=== PATIENT | female | born 1960 | race Caucasian/White ===

== ENCOUNTER → 2020-12-28 15:48 | Outpatient (CLI) | payer MEDICAID, SELFPAY ==
--- NOTE | 2020-12-28 15:52 | CT_ITS ---
STUDY: LOW DOSE CT LUNG CANCER SCREENING REASON FOR EXAM: Female, 60 years old. 48 pack-year smoking history. Current smoker. RADIATION DOSAGE (If Supplied By Facility): CTDIvol = ( 3.02 ) mGy, DLP = ( 109.10 ) mGycm TECHNIQUE: No contrast was administered. Low dose technique was utilized (average mAS-38 and kVp 120). 1.25 mm axial source images with a slice interval of 1.25-mm were reconstructed in lung windows. 2.5 mm axial source images with a slice interval of 2.5-mm were reconstructed in lung windows. 5.0 mm axial source images with a slice interval of 5.0-mm were reconstructed in soft tissue windows. Nodule measured using lung windows on PACS and/or independent workstation with automated measurement of minimum and maximum diameter. Nodule measurement reported as average diameter rounded to the nearest whole number. Growth is defined as an increase ins size of greater than 1.5 mm. COMPARISON: None. NODULES: Nodule #: 1 Density: Solid Lung location: Right upper lobe: 0.2 cm from pleura Location in series: Series Number: 2 Image: 56 Size - D1 x D2 mm: 2 x 2 mm: 2 mm average diameter Margin: Smooth Shape: Round Calcification: No Fat: No Temporal comparison: No Nodule #: 2 Density: Solid Lung location: Right upper lobe: Pleural-based Location in series: Series Number: 2 Image: 85 Size - D1 x D2 mm: 2 x 2 mm: 2 mm average diameter Margin: Smooth Shape: Round Calcification: Yes Fat: No Temporal comparison: No Nodule #: 3 Density: Solid Lung location: Right upper lobe: 0.6 cm from pleura Location in series: Series Number: 2 Image: 101 Size - D1 x D2 mm: 3 x 4 mm: 3 mm average diameter Margin: Smooth Shape: Oval Calcification: Yes Fat: No Temporal comparison: None Nodule #: 4 Density: Solid Lung location: Right lower lobe: Pleural-based Location in series: Series Number: 2 Image: 134 Size - D1 x D2 mm: 4 x 4 mm: 4 mm average diameter Margin: Smooth Shape: Round Calcification: No Fat: No Temporal comparison: No Total lung nodules (excluding granulomas): 2 Emphysema: There are mild emphysematous changes throughout the lungs without infiltrates. Endobronchial lesion: None Aorta: Normal Coronary arteries: Minimal coronary artery calcifications. Heart: Normal Pulmonary artery: Normal Mediastinal nodes: None Other chest and abdominal findings: Degenerative changes of the thoracic spine. CT/Low Dose CT Lung Screening IMPRESSION: Lung-RADS category 2 - Continue annual screening with LDCT in 12 months. IMPORTANT NOTES FOR USE: ACR Lung-RADS Version 1.1 Assessment Categories Release Date: 2018 Category: Coded 0-4 bases on nodule(s) with highest degree of suspicion. Negative screen is defined as categories 1 and 2; a positive screen is defined as categories 3 and 4. Category 3 and 4A nodules that are unchanged on interval CT should be coded as category 2, and individuals returned to screening in 12 months. Category 4X: Category 3 or 4 nodules with additional imaging findings that increase the suspicion of lung cancer, such as spiculation, GGN that doubles in size in 1 year, enlarged lymph notes, etc. Category Modifiers: S (significant finding unrelated to lung cancer) Electronically Signed: Edgard Chin DO at 16:40 EDT Tel [phone], Service support ,
== END ==
PROVIDERS: PCP Nurse Practitioner Family; Referring Provider Nurse Practitioner Family; Visit Provider Nurse Practitioner Family
DX: Z12.2 Encounter for screening for malignant neoplasm of respiratory organs (principal); R05 Cough; Z72.0 Tobacco use
CPT/HCPCS: 71271

== ENCOUNTER 2021-09-08 12:32 | Emergency (ER) | payer MEDICAID, SELFPAY ==
[2021-09-08 12:34] VITALS: BP 132/100; PULSE 106; RESP 20; TEMP 36.9; O2SAT 97; BMI 27.5
--- NOTE | 2021-09-08 13:00 | RAD_ITS ---
INDICATION: wound EXAMINATION/TECHNIQUE: X-RAY - LEFT XR Foot Min 3 Views 3 VIEWS COMPARISON: None. FINDINGS: SOFT TISSUES: Soft tissue swelling most prominent overlying the forefoot was performed of the plantar region, no abnormal density visualized in the soft tissues. BONES/JOINTS: Degenerative bone changes, inferior to anterior spur. No evidence of cortical irregularity or lucency to suggest a fracture, no evidence of physical sclerotic bone lesion is seen. RAD/Foot min 3 Views IMPRESSION: Soft tissue swelling, no underlying osseous abnormality is seen. Electronically Signed: Aidan Rios MD at 13:20 EDT ,
--- NOTE | 2021-09-08 13:08 | EX.ED.DYSGE1 ---
HPI <WYATT Cedillo - Last Filed: 09/08/21 14:41> History of Present Illness Chief Complaint: Wound Narrative Narrative: 61-year-old female with no significant medical history presents the emergency department with acute on chronic wound to the left plantar aspect of the foot. Patient has had this in the past, however it did drain and the pain diminished. Patient states that for the last several weeks, it has been any more swollen and she is here for evaluation. Patient did have a foot x-ray that was ordered by her PCP in November 2020, she states that she never got it done and she is here for further evaluation. Patient is not diabetic, denies any fevers or chills, patient does not currently have a field engineer. PFSH <WYATT Cedillo - Last Filed: 09/08/21 14:41> PFS Medical History no medical history Home Medications cephalexin 500 mg PO Q6 #40 cap 09/08/21 [Rx Last Taken Unknown] hydrocodone-acetaminophen 1 tab PO Q6H PRN 3 Days #10 tab 09/08/21 [Rx Last Taken Unknown] sulfamethoxazole-trimethoprim [Bactrim DS] 1 tab PO BID #20 tab 09/08/21 [Rx Last Taken Unknown] Allergy/AdvReac Type Severity Reaction Status Date / Time No Known Allergies Allergy Verified 09/08/21 12:37 Surgical History (Updated 09/08/21 @ 12:49 by Loren Hanna) History of cholecystectomy Social History Smoking Status: Current every day smoker tobacco type: cigarettes ROS <WYATT Cedillo - Last Filed: 09/08/21 14:41> ROS ED ROS Narrative Constitutional: Negative for fever, chills, weight loss, weakness Eyes: Negative for vision loss, vision change, double vision ENT: Negative for any sore throat, ear pain, congestion Cardiovascular: Negative for any chest pain, tightness, palpitations, racing heartbeat Respiratory: Negative for any cough, sputum production, hemoptysis, shortness of breath, shortness of breath on exertion, orthopnea Gastrointestinal: Negative for any abdominal pain, nausea, vomiting, diarrhea, constipation, blood in stool, blood in vomit : Negative for any urinary frequency, incontinence, dysuria, retention, blood in urine Muscle skeletal: Negative for any muscle joint pain, stiffness, myalgias, arthralgias, neck pain, back pain. Positive for foot Neurological: Negative for any headache, dizziness, syncope, numbness or tingling Skin: Negative for any rashes, itching, abrasions, lacerations. Patient does have a lump/abscess to the plantar aspect of the distal foot. Psychiatric: Negative for any depression, anxiety, stress, suicidal ideation, homicidal ideation Hematologic: Negative for any easy bruising, excessive bruising, easy bleeding Allergies: Negative for any eczema, hives, rash EXAM <WYATT Cedillo - Last Filed: 09/08/21 14:41> Physical Exam Narrative Exam Narrative: Vital signs reviewed. Extremities: No peripheral edema, no signs of gross trauma or deformity. Active full range of motion of all extremities. Patient complains of left foot pain, this is due to the abscess/lump to the plantar surface. Neuro: Cranial nerves II through XII intact, no focal neurological deficits. Skin: Clean dry and intact with no rash, purpura, petechiae, vesicles or pustules. Patient does appear to have a cystic-like structure to the plantar aspect of the foot, this is very painful on palpation. Negative for any cellulitis, gross drainage at this time Backslash flank: No CVA tenderness, no midline spinal tenderness, no deformity. Psych: Normal mood and affect. No SI, HI or acute psychosis. Const Vital Signs: 09/08/21 12:34 Temperature 98.4 F Temperature Source Temporal Pulse Rate 106 H Respiratory Rate 20 H Blood Pressure 132/100 H Blood Pressure Mean 110 Pulse Ox 97 Oxygen Delivery Method Room Air Positive well nourished and well developed General Appearance ED: well developed <Dr. Dino Jhaveri MD - Last Filed: 09/08/21 14:45> Physical Exam Const Vital Signs: 09/08/21 12:34 Temperature 98.4 F Temperature Source Temporal Pulse Rate 106 H Respiratory Rate 20 H Blood Pressure 132/100 H Blood Pressure Mean 110 Pulse Ox 97 Oxygen Delivery Method Room Air MDM <WYATT Cedillo - Last Filed: 09/08/21 14:41> MDM MDM Narrative Medical decision making narrative: Patient appears well, patient appears nontoxic, vital signs are stable. Patient presents to the emergency department with an abscess, cyst to the plantar aspect of the left foot. Patient did receive 3 view x-rays, as read by ER physician, soft tissue swelling, no underlying osseous abnormality seen. Due to the patient's concern for pain with an injection to the sole of the foot, patient did receive a nerve block on the lateral malleoli are area. This nerve block was successful, I was able to place a 1 cm vertical laceration in the cyst, got copious amounts of brown, maynard drainage out. Sterile gloves, sterile dressings will be used. Patient replaced in a dressing. Patient be given Keflex, Bactrim as well as a Jackson here. Wound cultures were completed to see the growth of the bacteria. Patient will be given a field engineer to follow-up, patient instructed to keep the area clean and dry, is instructed to return for any worsening symptoms Radiography Diagnostic Testing: Clinical Impression(s) from Imaging Studies Foot X-Ray 09/08/21 13:00 IMPRESSION: Soft tissue swelling, no underlying osseous abnormality is seen. Electronically Signed: Aidan Rios MD at 13:20 EDT , <Dr. Dino Jhaveri MD - Last Filed: 09/08/21 14:45> MDM Radiography Diagnostic Testing: Clinical Impression(s) from Imaging Studies Foot X-Ray 09/08/21 13:00 IMPRESSION: Soft tissue swelling, no underlying osseous abnormality is seen. Electronically Signed: Aidan Rios MD at 13:20 EDT , Procedures <WYATT Cedillo - Last Filed: 09/08/21 14:41> Other Procedures Procedure(s): I&D. <Dr. Dino Jhaveri MD - Last Filed: 09/08/21 14:45> Other Procedures Procedure(s): Left lower extremity posterior tibial nerve block: Using small parts ultrasound guidance, the posterior tibial nerve was visualized posterior to the posterior tibial artery and associated veins, about 1-2 cm proximal to the medial malleolus, a 25-gauge needle was inserted under ultrasound guidance simultaneously, a total of 5 cc of 0.25% bupivacaine was injected in the area of the posterior tibial nerve after checking several times to ensure the needle was not in a vascular structure, and prepping with isopropanol. Tolerated well without any complications, good anesthesia throughout the plantar aspect of the foot was obtained. Discharge Plan Triage Chief Complaint: Wound ED Midlevel Provider: Abelardo Araya ED Provider: Dino Jhaveri Dx/Rx/DC Orders Clinical Impression: Abscess of left foot, Ganglion cyst of left foot Instructions: Abscess Drainage, ED Abscess Incision And Drainage Prescriptions: New hydrocodone-acetaminophen 5-325 mg tablet 1 tab PO Q6H PRN (Reason: pain) 3 Days Qty: 10 RF: 0 sulfamethoxazole-trimethoprim [Bactrim DS] 800-160 mg tablet 1 tab PO BID Qty: 20 RF: 0 cephalexin 500 mg capsule 500 mg PO Q6 Qty: 40 RF: 0 Primary Care Provider: Michael Jett NP Referrals: Bernice Varma DPM [STAFF PHYSICIAN] - Michael Jett HIGH SCHOOL COUNSELOR, HIGH SCHOOL COUNSELOR-C [Primary Care Provider] - Activity Restrictions/Additional Instructions: Please keep the area clean, dry. Please keep it dressed while up on your foot. Please follow-up with your primary care doctor as well as podiatry. Please take all antibiotics, pain medicines as needed. Print Language: Senegalese Disposition Disposition: Home, Self Care
[2021-09-08] MEDS: HYDROcodone Bitartrate/Apap 5/325 Tablet PO (14:47)
[2021-09-08] MEDS: Bupivacaine Mpf 0.5% 30 ML VIAL INFILT (14:47)
[2021-09-08] MEDS: Smz/Tmp Ds Tablet 1 TABLET PO (14:47)
[2021-09-08] MEDS: Cephalexin 250 MG Capsule 500 MG PO (14:47)
== END 2021-09-08 15:13 | disposition home or self-care (01) ==
PROVIDERS: Emergency Provider Emergency Medicine; PCP Nurse Practitioner Family; Visit Provider Emergency Medicine
DX: M67.472 Ganglion, left ankle and foot (principal); L02.612 Cutaneous abscess of left foot; F17.210 Nicotine dependence, cigarettes, uncomplicated
CPT/HCPCS: 64450; 73630; 87070; 87077; 87186; 87205; 99283

== ENCOUNTER → 2021-09-18 | Outpatient (CLI) | payer MEDICAID, SELFPAY ==
[2021-09-18 13:26] LABS: Erythrocyte Sedimentation Rate 12 mm/hr (0-30)
[2021-09-18 13:27] LABS: Absolute Lymphocyte Count 2.97 X10^3/uL (0.83-4.51); Absolute Neutrophil Count 8.3 X10^3/uL (2.0-7.7); Basophil# 0.04 X10^3/uL; Basophil% 0.3 % (0-1); Eosinophil# 0.11 X10^3/uL; Eosinophils% 0.9 % (0-5); Hematocrit 51.1 % (37-47); Hemoglobin 16.7 g/dL (12.0-15.0); Lymphocyte # 2.97 X10^3/ul (0.83-4.51); Lymphocyte % 24.8 % (19-41); Mean Corp Hgb Conc 32.7 g/dL (32-36); Mean Corpuscular Hgb 31.3 pg (27.0-32.0); Mean Corpuscular Volume 95.9 fL (81-99); Mean Platelet Vol. 9.9 fl (6.2-12.0); Monocyte# 0.48 X10^3/uL; NRBC Flagged by Analyzer 0 % (0-5); Neutrophil # 8.31 X10^3/uL (2.7-7.7); Neutrophil % 69.4 % (47-70); Platelet Count 494 K/mm3 (150-450); RBC Distribution Width CV 11.7 % (11.6-14.6); RBC Distribution Width SD 41.3 fl (35.1-43.9); Red Blood Count 5.33 M/mm3 (4.2-5.4)
[2021-09-18 14:15] LABS: AST(SGOT) 12 U/L (15-37); Alanine Aminotransfer ALT/SGPT 28 U/L (13-56); Albumin, Serum 3.9 g/dL (3.2-5.0); Alkaline Phosphatase 154 U/L (45-117); Anion Gap 8 (5-15); BUN 16 mg/dL (7-18); BUN/Creat Ratio 16.8 RATIO (10-20); Calcium,Total 9.3 mg/dL (8.5-10.1); Chloride 98 mmol/L (98-107); Creatinine, Serum 0.95 mg/dL (0.55-1.02); EST Glomerular Filtration Rate 63 mL/min (>60); Est Glom Filt Rate - Afr Amer 77 mL/min (>60); Globulin 3.8 g/dL (2.2-4.2); Glucose 546 mg/dL (74-106); Potassium 4.4 mmol/L (3.5-5.1); Protein, Total 7.7 g/dL (6.4-8.2); Sodium Level 130 mmol/L (136-145); Uric Acid 3.1 mg/dL (2.6-6.0)
== END | disposition home or self-care (01) ==
PROVIDERS: PCP Nurse Practitioner Family; Referring Provider Podiatrist; Visit Provider Podiatrist
DX: M10.9 Gout, unspecified (principal); L03.90 Cellulitis, unspecified; M79.89 Other specified soft tissue disorders
CPT/HCPCS: 36415; 80053; 84550; 85025; 85652; 86140

== ENCOUNTER 2021-09-25 12:41 | Emergency (ER) | payer MEDICAID, SELFPAY ==
[2021-09-25 12:42] VITALS: BP 147/93; PULSE 106; RESP 15; TEMP 36.6; O2SAT 97; BMI 27.4
[2021-09-25 12:56] LABS: Bedside Glucose 372 mg/dL (74-106)
--- NOTE | 2021-09-25 13:45 | RAD_ITS ---
STUDY: X-RAY - LEFT FOOT CLINICAL: Wound/bump at the plantar aspect of the toes for 2 years, infection. TECHNIQUE: 3 view(s) of the foot. COMPARISON: Radiographs 09/08/2021. FINDINGS: There are small plantar and posterior calcaneal enthesophytes. Otherwise, unremarkable talus, calcaneus, and tarsal bones. Normal visualized subtalar, talonavicular, calcaneocuboid, tarsal and tarsometatarsal articulations. Normal metatarsi. There is mild joint space narrowing of the metatarsophalangeal joint of the great toe. Normal tibial and fibular sesamoid bones. Normal interphalangeal joint of the great toe. Normal phalanges of the great toe. Normal second through fifth metatarsophalangeal joints. Normal interphalangeal joints and phalanges of the lesser toes. There is soft tissue swelling. RAD/Foot min 3 Views IMPRESSION: Soft tissue swelling. No demonstrated active bone destruction. Electronically Signed: Wayne Gardner MD at 14:15 EDT ,
[2021-09-25 13:58] LABS: Absolute Lymphocyte Count 3.67 X10^3/uL (0.83-4.51); Absolute Neutrophil Count 6.9 X10^3/uL (2.0-7.7); Basophil# 0.05 X10^3/uL; Basophil% 0.4 % (0-1); Eosinophils% 0.9 % (0-5); Hematocrit 50.6 % (37-47); Lymphocyte # 3.67 X10^3/ul (0.83-4.51); Lymphocyte % 32.4 % (19-41); Mean Corp Hgb Conc 33.6 g/dL (32-36); Mean Corpuscular Hgb 31.5 pg (27.0-32.0); Mean Corpuscular Volume 93.7 fL (81-99); Mean Platelet Vol. 9.3 fl (6.2-12.0); Monocyte# 0.56 X10^3/uL; Monocyte% 4.9 % (0-10); NRBC Flagged by Analyzer 0 % (0-5); Neutrophil # 6.91 X10^3/uL (2.7-7.7); Platelet Count 460 K/mm3 (150-450); RBC Distribution Width CV 11.9 % (11.6-14.6); RBC Distribution Width SD 41.3 fl (35.1-43.9); White Blood Count 11.3 K/mm3 (4.4-11.0)
[2021-09-25 14:06] LABS: ALB/GLOB Ratio 1.1 RATIO (0.9-2.4); AST(SGOT) 8 U/L (15-37); Alanine Aminotransfer ALT/SGPT 25 U/L (13-56); Albumin, Serum 4.1 g/dL (3.2-5.0); Alkaline Phosphatase 129 U/L (45-117); Anion Gap 6 (5-15); BUN 13 mg/dL (7-18); BUN/Creat Ratio 17.4 RATIO (10-20); CRP 3.14 mg/L (0.0-3.0); Calcium,Total 9.4 mg/dL (8.5-10.1); Chloride 104 mmol/L (98-107); Creatinine, Serum 0.75 mg/dL (0.55-1.02); EST Glomerular Filtration Rate 84 mL/min (>60); Est Glom Filt Rate - Afr Amer 101 mL/min (>60); Estimated Creatinine Clearance 61.51 ml/min; Globulin 3.7 g/dL (2.2-4.2); Glucose 342 mg/dL (74-106); Potassium 4.4 mmol/L (3.5-5.1); Protein, Total 7.8 g/dL (6.4-8.2); Sodium Level 135 mmol/L (136-145)
[2021-09-25 14:13] LABS: Erythrocyte Sedimentation Rate 22 mm/hr (0-30)
[2021-09-25] MEDS: Clindamycin 900 MG/50 ML BAG 75 MG IV (14:18)
--- NOTE | 2021-09-25 14:58 | EDS_ITS ---
HPI History of Present Illness Chief Complaint: Hyperglycemia Narrative Narrative: Chief complaint is hyperglycemia, however patient presents with left foot pain which is somewhat chronic she was on antibiotics for an infection but she tells me now it is back. She does have some discharge from that wound. She has no fevers or chills. She was seen by podiatry, a blood sugar was done a week ago when she was seen by podiatry and apparently her blood sugar was in the 500s. Up until that point she had no idea if she was a diabetic. Systemically she does not complain of any polyuria polydipsia or recent weight loss she tells me she has been her normal self which makes me suspicious that this diabetes has been ongoing for quite some time. PFSH PFSH Home Medications clindamycin HCl 300 mg PO Q8H 10 Days #60 cap 09/25/21 [Rx Last Taken Unknown] glipizide-metformin 1 tab PO DAILY #14 tab 09/25/21 [Rx Last Taken Unknown] Allergy/AdvReac Type Severity Reaction Status Date / Time No Known Allergies Allergy Verified 09/08/21 12:37 Surgical History History of cholecystectomy Social History Smoking Status: Current every day smoker tobacco type: cigarettes ROS ROS ED ROS Narrative Past medical history: Reviewed, she tells me she does not have any medical problems however she does not go to a doctor and does not have frequent checks. Medications: None currently Social history: Noncontributory Family history: Strong family history of diabetes. Review of systems: All systems negative except as indicated General: No fever Eyes: No visual changes ENT: No upper airway congestion, normal voice Neck: No neck pain Cardiovascular: No chest pain Respiratory: No shortness of breath or cough Gastrointestinal: No abdominal pain, nausea vomiting or diarrhea Genitourinary: No dysuria Musculoskeletal: Foot pain as in HPI Skin: No rash Neurological: No memory loss, confusion or any focal weakness Psych: No recent behavioral changes Hematologic: No easy bleeding or easy bruising EXAM Physical Exam Narrative Exam Narrative: Physical exam General: Patient appears chronically ill. She does not appear in any distress. She is pleasant. Head: Normocephalic, Atraumatic Eyes: Conjunctiva not pale ENT: Moist mucous membranes Neck: Supple, Nontender, No lymphadenopathy Cardiovascular: Regular rate, Regular rhythm Respiratory: No distress, CTA bilaterally Abdomen: Soft, Nontender, Nondistended Back: Nontender, Normal Inspection. Negative for: CVA tenderness Extremities: Left foot shows a dorsal wound about 3 cm x 2 cm, the wound is open, I can express some pus. The wound does not seem to be deep. There is no surrounding cellulitis at this time. Skin: As above Neurological: Alert, Normal Strength, Normal Sensation Psychological: Normal affect Const Vital Signs: 09/25/21 12:42 Temperature 98 F Temperature Source Temporal Pulse Rate 106 H Respiratory Rate 15 Blood Pressure 147/93 H Blood Pressure Mean 111 Pulse Ox 97 Oxygen Delivery Method Room Air MDM MDM MDM Narrative Medical decision making narrative: Patient's work-up is not consistent with any kind of osteomyelitis, however she has a wound that is actively draining, she was on antibiotics but not currently, her blood sugars in the 300s. I wanted to admit her for both glycemic control, glycemic education as well as wound care as well as antibiotics. She is adamantly refusing. I spent quite a time talking to her about the risks benefits as well as possibility of her having a systemic infection and or possibly losing her foot. She understands all of this she will not state, her primary reason is because she has to take care of any animals because all her family members are out of town. I told her to try to arrange alternate routes as well as get social welfare clerk involved, she is refusing this she just wants to go home. I will start her on glycemic control medications as well as antibiotics. I explained to her that this is not the primary treatment, I also explained to her that she feels worse or she changes her mind she needs to return to the emergency department and she is more than welcome. She understands this. She did see podiatry a week ago and has an MRI planned for 2 days from now and she has an appointment with her PCP in 3 days. I encouraged her to keep those appointments. Lab Data Labs: Laboratory Results - last 24 hr 09/25/21 09/25/21 09/25/21 12:49 13:45 13:45 WBC 11.3 H RBC 5.40 Hgb 17.0 H Hct 50.6 H MCV 93.7 MCH 31.5 MCHC 33.6 RDW Std Deviation 41.3 RDW Coeff of Marisel 11.9 Plt Count 460 H MPV 9.3 Immature Gran % (Auto) 0.400 Neut % (Auto) 61.0 Lymph % (Auto) 32.4 [place] % (Auto) 4.9 Eos % (Auto) 0.9 Baso % (Auto) 0.4 Absolute Neuts (auto) 6.9 Absolute Lymphs (auto) 3.67 Nucleated RBC % 0 ESR 22 Sodium 135 L Potassium 4.4 Chloride 104 Carbon Dioxide 25.0 Anion Gap 6 BUN 13 Creatinine 0.75 Estim Creat Clear Calc 61.51 Est GFR (MDRD) Af Amer 101 Est GFR (MDRD) Non-Af 84 BUN/Creatinine Ratio 17.4 Glucose 342 H Calcium 9.4 Total Bilirubin 0.30 AST 8 L ALT 25 Alkaline Phosphatase 129 H C-React Prot Ext Range 3.14 H Total Protein 7.8 Albumin 4.1 Globulin 3.7 Albumin/Globulin Ratio 1.1 POC Glucose 372 H Radiography Diagnostic Testing: Clinical Impression(s) from Imaging Studies Foot X-Ray 09/25/21 13:45 IMPRESSION: Soft tissue swelling. No demonstrated active bone destruction. Electronically Signed: Wayne Gardner MD at 14:15 EDT Reading Location ID and State: [facility] / [place] Tel , Service support , Discharge Plan Triage Chief Complaint: Hyperglycemia ED Provider: Abelardo Ford Dx/Rx/DC Orders Clinical Impression: Abscess, Hyperglycemia, Left against medical advice Instructions: Abscess Drainage, ED Diabetic Hyperglycemia Prescriptions: New glipizide-metformin 2.5-500 mg tablet 1 tab PO DAILY Qty: 14 RF: 0 clindamycin HCl 150 mg capsule 300 mg PO Q8H 10 Days Qty: 60 RF: 0 Primary Care Provider: Michael Jett NP Referrals: Michael Jett INTELLIGENCE SENIOR SERGEANT, INTELLIGENCE SENIOR SERGEANT-C [Primary Care Provider] - 2 Days Disposition Disposition: Home, Self Care
== END 2021-09-25 15:21 | disposition left against medical advice (07) ==
PROVIDERS: Emergency Provider Emergency Medicine; PCP Nurse Practitioner Family; Visit Provider Emergency Medicine
DX: L02.612 Cutaneous abscess of left foot (principal); E11.65 Type 2 diabetes mellitus with hyperglycemia; G89.29 Other chronic pain; F17.210 Nicotine dependence, cigarettes, uncomplicated; Z53.29 Procedure and treatment not carried out because of patient's decision for other reasons; Z79.84 Long term (current) use of oral hypoglycemic drugs
CPT/HCPCS: 73630; 80053; 82962; 85025; 85652; 86140; 96365; 99283; J7050; A4216

== ENCOUNTER → 2021-09-27 | Outpatient (CLI) | payer MEDICAID, SELFPAY ==
--- NOTE | 2021-09-27 07:21 | MRI_ITS ---
STUDY: MRI LEFT FOREFOOT WITH AND WITHOUT CONTRAST REASON FOR EXAM: Large lump at the distal aspect of the third metatarsal for 2 years, open wound since 09/08/2021. TECHNIQUE: Standardized fat and water weighted pulse sequences were obtained in all 3 orthogonal planes, pre and post contrast administration. 14 milliliters intravenous Dotarem was administered for the contrast portion of the examination. COMPARISON: Radiographs 09/25/2021. FINDINGS: Normal metatarsophalangeal joint of the hallux. Normal tibial and fibular sesamoids, with normal sesamoids-first metatarsal articulations. Normal interphalangeal joint of the hallux. Normal proximal and distal phalanges of the great toe. Normal medial and lateral heads of the flexor hallucis brevis tendons. Normal flexor and extensor hallucis longus tendons. Normal second through fifth metatarsophalangeal (MTP) joints. Normal interphalangeal joints of the second through fifth toes. Normal proximal, middle and distal phalanges of the second through fifth toes. Normal flexor and extensor tendons of the second through fifth toes. There is an intermetatarsal neuroma of the second webspace (T1 short axis images 22-24) measuring 0.5 cm in transverse dimension. There is mild intertarsal bursitis of the third webspace (T2 axial short axis image 19). Normal metatarsals. Normal intrinsic muscles of the forefoot. There is a soft tissue mass in the subcutis adipose space plantar to the third metatarsophalangeal joint measuring 0.5 x 1.2 x 2.6 cm (AP x transverse x length). The lesion is intermediate in signal intensity on T1 sequences (T1 sagittal images 14, 15) and heterogeneous with hypointense and mildly hyperintense signal on T2 sequences (T1 short axis images 21-23). There is mild contrast enhancement at the periphery of the mass and in the adjacent subcutis adipose space (postcontrast T1 sagittal images 14, 15). MRI/Lower Ext No Joint W/WO Cont IMPRESSION: Soft tissue mass in the subcutis adipose space plantar to the third metatarsophalangeal joint without specific imaging characteristics, possibly representing a granuloma, although no signal void to indicate foreign body is identified. Cellulitis of the third toe without demonstrated soft tissue abscess. Intermetatarsal neuroma of the second webspace. Mild intermetatarsal bursitis of the third webspace. No demonstrated osteomyelitis. Electronically Signed: Wayne Gardner MD at 13:40 EDT ,
== END | disposition home or self-care (01) ==
LOC: MRI 07:13
PROVIDERS: PCP Nurse Practitioner Family; Referring Provider Podiatrist; Visit Provider Podiatrist
DX: S92.342A Displaced fracture of fourth metatarsal bone, left foot, initial encounter for closed fracture (principal); M79.672 Pain in left foot; R22.42 Localized swelling, mass and lump, left lower limb; M1A.4720 Other secondary chronic gout, left ankle and foot, without tophus (tophi); L03.116 Cellulitis of left lower limb
CPT/HCPCS: 73720; A9575

== ENCOUNTER → 2021-10-20 | Outpatient (CLI) | payer MEDICAID, SELFPAY ==
[2021-10-20 17:39] LABS: Absolute Lymphocyte Count 3.43 X10^3/uL (0.83-4.51); Absolute Neutrophil Count 6.7 X10^3/uL (2.0-7.7); Basophil# 0.03 X10^3/uL; Basophil% 0.3 % (0-1); Eosinophil# 0.14 X10^3/uL; Eosinophils% 1.3 % (0-5); Hematocrit 50.3 % (37-47); Hemoglobin 16.4 g/dL (12.0-15.0); Lymphocyte # 3.43 X10^3/ul (0.83-4.51); Lymphocyte % 31.6 % (19-41); Mean Corp Hgb Conc 32.6 g/dL (32-36); Mean Corpuscular Volume 95.1 fL (81-99); Mean Platelet Vol. 10.2 fl (6.2-12.0); Monocyte# 0.51 X10^3/uL; Monocyte% 4.7 % (0-10); NRBC Flagged by Analyzer 0 % (0-5); Neutrophil # 6.72 X10^3/uL (2.7-7.7); Neutrophil % 61.7 % (47-70); Platelet Count 390 K/mm3 (150-450); RBC Distribution Width SD 41.7 fl (35.1-43.9); Red Blood Count 5.29 M/mm3 (4.2-5.4); White Blood Count 10.9 K/mm3 (4.4-11.0)
[2021-10-20 17:57] LABS: AST(SGOT) 13 U/L (15-37); Alanine Aminotransfer ALT/SGPT 36 U/L (13-56); Albumin, Serum 3.8 g/dL (3.2-5.0); Alkaline Phosphatase 121 U/L (45-117); Anion Gap 7 (5-15); BUN 15 mg/dL (7-18); BUN/Creat Ratio 17.3 RATIO (10-20); Calcium,Total 8.9 mg/dL (8.5-10.1); Chloride 104 mmol/L (98-107); Creatinine, Serum 0.87 mg/dL (0.55-1.02); EST Glomerular Filtration Rate 71 mL/min (>60); Est Glom Filt Rate - Afr Amer 85 mL/min (>60); Globulin 3.7 g/dL (2.2-4.2); Glucose 300 mg/dL (74-106); Hemoglobin A1c 9.6 % (3.8-5.6); Potassium 3.9 mmol/L (3.5-5.1); Protein, Total 7.5 g/dL (6.4-8.2); Sodium Level 136 mmol/L (136-145)
== END | disposition home or self-care (01) ==
LOC: MFPLAB 15:11
PROVIDERS: PCP Nurse Practitioner Family; Visit Provider Family Medicine
DX: Z01.812 Encounter for preprocedural laboratory examination (principal)
CPT/HCPCS: 36415; 80053; 83036; 85025

== ENCOUNTER → 2021-12-04 | Outpatient (CLI) | payer MEDICAID, SELFPAY ==
[2021-12-04 20:21] LABS: M R Staph aureus DNA By PCR Negative (Negative); Probe Check PASS; Specimen Processing Control PASS; Staph aureus DNA By PCR NEGATIVE (Negative)
== END | disposition home or self-care (01) ==
PROVIDERS: PCP Nurse Practitioner Family; Visit Provider Podiatrist
DX: L97.522 Non-pressure chronic ulcer of other part of left foot with fat layer exposed (principal); L03.116 Cellulitis of left lower limb
CPT/HCPCS: 87070; 87075; 87077; 87186; 87205; 87640

== ENCOUNTER 2021-12-07 16:29 | Outpatient (CLI) | payer MEDICAID, SELFPAY ==
[2021-12-07 18:10] LABS: Cholesterol 180 mg/dL (200); High Density Lipoprotein 43 mg/dL; Triglycerides 156 mg/dL; Very Low Density Lipoprotein 31 mg/dL (5-40)
== END 2021-12-07 23:59 | disposition home or self-care (01) ==
LOC: MFPLAB 16:31
PROVIDERS: PCP Family Medicine; Referring Provider Family Medicine; Visit Provider Family Medicine
DX: E66.3 Overweight (principal)
CPT/HCPCS: 36415; 80061

== ENCOUNTER → 2021-12-12 | Outpatient (CLI) | payer MEDICAID, SELFPAY ==
[2021-12-12 18:07] LABS: Absolute Lymphocyte Count 3.17 X10^3/uL (0.83-4.51); Absolute Neutrophil Count 6.6 X10^3/uL (2.0-7.7); Basophil# 0.02 X10^3/uL; Basophil% 0.2 % (0-1); Eosinophil# 0.33 X10^3/uL; Eosinophils% 3.1 % (0-5); Hematocrit 45.4 % (37-47); Lymphocyte # 3.17 X10^3/ul (0.83-4.51); Lymphocyte % 29.6 % (19-41); Mean Corpuscular Hgb 31.7 pg (27.0-32.0); Monocyte# 0.54 X10^3/uL; NRBC Flagged by Analyzer 0 % (0-5); Neutrophil # 6.61 X10^3/uL (2.7-7.7); Neutrophil % 61.7 % (47-70); Platelet Count 398 K/mm3 (150-450); RBC Distribution Width CV 12.4 % (11.6-14.6); RBC Distribution Width SD 43.8 fl (35.1-43.9); Red Blood Count 4.73 M/mm3 (4.2-5.4); White Blood Count 10.7 K/mm3 (4.4-11.0)
[2021-12-12 19:11] LABS: ALB/GLOB Ratio 1.4 RATIO (0.9-2.4); AST(SGOT) 7 U/L (15-37); Alanine Aminotransfer ALT/SGPT 22 U/L (13-56); Albumin, Serum 3.8 g/dL (3.2-5.0); Alkaline Phosphatase 88 U/L (45-117); Anion Gap 5 (5-15); BUN 15 mg/dL (7-18); BUN/Creat Ratio 23.4 RATIO (10-20); Chloride 105 mmol/L (98-107); Creatinine, Serum 0.64 mg/dL (0.55-1.02); EST Glomerular Filtration Rate 100 mL/min (>60); Est Glom Filt Rate - Afr Amer 121 mL/min (>60); Globulin 2.8 g/dL (2.2-4.2); Glucose 222 mg/dL (74-106); Potassium 4.4 mmol/L (3.5-5.1); Protein, Total 6.6 g/dL (6.4-8.2); Sodium Level 138 mmol/L (136-145)
[2021-12-12 21:58] LABS: Microalbumin,Random Urine 30.4 mg/L (NO RANGE EST.)
[2021-12-12 23:00] LABS: Hemoglobin A1c 7.6 % (3.8-5.6)
== END | disposition home or self-care (01) ==
LOC: MFPLAB 15:48
PROVIDERS: Family Medicine; PCP Family Medicine; Referring Provider Family Medicine; Visit Provider Family Medicine
DX: Z01.818 Encounter for other preprocedural examination (principal)
CPT/HCPCS: 36415; 80053; 82043; 83036; 85025

== ENCOUNTER 2021-12-21 11:22 | Day surgery (SDC) | payer MEDICAID, SELFPAY ==
--- NOTE | 2021-12-21 | IMM_PTH ---
PATIENT: Hammad BENNETT LOC: [facility] [place] U#:[id number] AGE/SX: 61/F ROOM: RE12/21/[address]: Dr. Bernice Varma DPM : 1960 BED: DIS: 12/21/2021 SPEC #: [id number] RECD: 12/25/21 12:59 STATUS: KWAME REQ #: [id number] SHWETA: 12/21/21 00:[address]: Bernice Varma DEPT: IMMUNOHISTOCHEMISTRY RECD BY: Roxy Gill ENTERED: 12/25/21 13:02 SP TYPE: IMMUNO OTHR DR: Mayra Cohen DO Tissues: B - Left foot Procedures: SMA (add) CD34 (add) DESMIN (add) MACRO (add) P53 (add) Vimentin (add) SMM (add) Pankeratin (initial) S-100 (add) PHYSICIAN & INSTITUTION [place] [id number] SPECIMEN INFORMATION: Tissue Source: B ? Left foot soft tissue mass Clinical Info: Left foot soft tissue mass Specimen Number: [id number] CPT code: 51578, 55808 x8 METHODOLOGY: Deparaffinized sections of prefer/formalin-fixed tissue or PAP/DQ stained slides are incubated with monoclonal/polyclonal antibodies/oligonucleotide probes. Localization is made via biotin free immunoperoxidase method. Appropriate controls are performed and reacted as expected. Results on target cell population are indicated in the following table: RESULTS: ANTIBODY / CLONE RESULT Block B1 AE1-3 (AE1/AE3/PCK26) negative Vimentin (V9) positive CD34 (QBEnd-10) negative Macro (HAM-56) positive Actin (1A4) negative Myosin (simms1) negative Desmin (CE-R-11) negative S-100 (4C4.9) negative P53 (DO-7) negative These tests were developed and their performance characteristics determined by [facility]. They may not have been cleared or approved by the U.S. Food and Drug Administration. The FDA has determined that such clearance or approval is not necessary. The above immunohistochemical/dualISH markers are ordered and reviewed by the Pathologist. INTERPRETATION: B. Left foot soft tissue mass, excision: Consistent with reactive and reparative change. AM:jerome 12/26/2021
[2021-12-21 12:07] VITALS: BP 112/70; PULSE 88; RESP 18; TEMP 36.9; O2SAT 97; BMI 26.4
[2021-12-21] MEDS: Lactated Ringers 1,000 ML 80 ML IV (12:13)
[2021-12-21 12:16] LABS: Bedside Glucose 287 mg/dL (74-106)
[2021-12-21] MEDS: Clindamycin 900 MG/50 ML BAG 75 MG IV (12:58)
--- NOTE | 2021-12-21 13:00 | SOF_PTH ---
PATIENT: Hammad BENNETT LOC: [facility] [place] U#:[id number] AGE/SX: 61/F ROOM: RE12/21/[address]: RAFY AguilarM : 1960 BED: DIS: 12/21/2021 SPEC #: [id number] RECD: 12/21/21 14:54 STATUS: KWAME REBlayne #: [id number] SHWETA: 12/21/21 13:[address]: Bernice Varma DEPT: SURGICAL PATHOLOGY RECD BY: Terrie Clements ENTERED: 12/22/21 08:21 SP TYPE: SOFT TISS OTHR DR: Mayra Cohen DO Tissues: A - Soft tissues, NOS B - Soft tissues, NOS Procedures: Surgery Specimen Level IV HEADER OPERATION: Excision soft tissue mass, foot PRE-OP DIAGNOSIS: Left foot soft tissue mass TISSUE SUBMITTED: A - Left foot soft tissue drainage, B - Left foot soft tissue mass, suture is distal tag MICROSCOPIC DIAGNOSIS A. Left foot soft tissue drainage, biopsy: Fibrofatty tissue and fibrinoid material. B. Left foot soft tissue mass, excision: Epidermal inclusion cyst with rupture and associated tissue reparative and reactive change. AM:jerome 12/25/2021 COMMENT Immunohistochemistry ([id number]) supports the above diagnosis. Case has been reviewed in consultation with Dr. Chester who concurs with the above diagnosis. IDC:SJ MICROSCOPIC DESCRIPTION Slides are reviewed. GROSS DESCRIPTION A - Received in fixative is one container labeled with the patient's name and designated left foot soft tissue. The specimen consists of multiple irregular fragments of light castelan-yellow soft tissue that in aggregate measure 2 x 0.6 x 0.1 cm. The specimen is totally submitted in one cassette. B - Received in fixative is one container labeled with the patient's name and designated left foot soft tissue mass. The specimen consists of an irregular fragment of white-yellow soft tissue measuring 3 x 1.5 x 0.9 cm. A suture is present along one edge. This edge is inked in blue ink. The remainder of the specimen is inked in black ink. The specimen is serially sectioned and totally submitted in two cassettes. / AM:jerome 12/22/2021 TC:5 CPT: 82396, 43162
--- NOTE | 2021-12-21 14:09 | DCINST_ITS ---
Discharge Instructions Diet Discharge Diet: No restrictions Activity Discharge Activity: May Not Drive (while taking pain medication) and Use Crutches Weight Bearing Status: No weight bearing Keep extremity elevated above heart level: Left Leg Dressing / Incision Call your doctor if your incision/area has: Continuous Slow Oozing, Sudden Increased Bleeding, Increased Pain/ Swelling, Increased Redness, Foul Smelling Discharge and Swelling at the incision site Call your doctor if you observe: Numbness or Tingling, Calf discomfort and Uncontrolled pain Change Dressing in: do not change dressing Remove Dressing in: do not remove dressing Cleanse incision/area with: Do not get Incision Wet and Keep Dressing Clean & Dry Follow Up Care Please Follow Up With: Bernice Varma DPM When: [facility]; call [phone] sooner if questions or concerns. Test Results: Test results from this visit will be discussed in further detail at your follow-up appointment, if applicable. Discharge Plan Admission Attending Provider: Bernice Varma Primary Care Provider: Mayra Cohen Discharge Orders/Prescriptions Prescriptions: New hydrocodone-acetaminophen 5-325 mg tablet 1 tab PO TID PRN (Reason: pain) 7 Days Qty: 21 0RF No Action glipizide-metformin 2.5-500 mg tablet 1 tab PO BID Referrals / Follow Up: Audrey Kuhn MD [Med Staff - [employer] Yard Worker] - Disposition Disposition (needs filled in before D/C Order can be placed): Home, Self Care
--- NOTE | 2021-12-21 14:11 | PCM.OPRPT ---
Problems Associated Problem List Diagnoses (1) Localized swelling, mass and lump, left lower limb: (2) Pain in left foot: Report of Operation Date of Procedure: 12/21/21 Pre-Operative Diagnosis: soft tissue mass, left foot Post-Operative Diagnosis: soft tissue mass, left foot Surgery/Procedure Performed:: excision of left foot soft tissue mass Description of Surgical Findings:: Hemostasis: Well-padded pneumatic left ankle tourniquet, 250 mmHg, 27 minutes Materials 3-0 Vicryl and 2-0 nylon Pathology specimen and cultures sent Complications: None Main findings: Well encapsulated left foot soft tissue mass with white semiviscous fluid The patient tolerated the procedure and anesthesia well. The patient was transported to the PACU with vital signs stable and vascular status intact to the surgical limb. To ice and elevate for pain and inflammation management. Postoperative orders were entered electronically. Surgeon: Bernice Varma customer service associate: None (Nikia Parker.P.Teresita, PGY 2) Type of Anesthesia: Local (1: 1 mix of 0.25% Marcaine plain and 1% lidocaine plain administered in a ray block fashion preop 17 cc, Intra-Op local infiltrative 14 cc) and MAC Specimen's removed: 1. Left foot soft tissue mass sent to pathology 2. Left foot soft tissue mass sent to microbiology 3. Post irrigation, aerobic, anaerobic, MRSA PCR swabs sent to microbiology Drains: None Estimated Blood Loss (mL): < 30 mL Description of Procedure: Indications: This 61-year-old female with significant past medical history of current smoker, arthritis, and recently diagnosed diabetic continues to complain of a soft tissue mass on the bottom of the ball of her left foot that intermittently drains a white creamy to chunky drainage. She has picked this open and drained it on her own multiple times and this keeps returning. In the past she was also treated for cellulitis when this developed an odor and redness which is not noted today. X-ray was of this foot was reviewed without osseous destruction, soft tissue emphysema or foreign body. She also had an MRI performed a couple of months ago of the left foot which demonstrated a soft tissue mass near the plantar aspect of the third metatarsal head that appears to be well encapsulated without adjacent infiltration or tissue destruction. Conservative care has included debridement, offloading, rest, obtaining imaging studies, antibiotics and wound care. She has failed conservative care and would like to proceed forward with surgical intervention. It is also noted she has a remote history of having a chronic warts which she had surgically excised at age 15 with chronic scar formation. Preoperative H&P were reviewed including his diagnostic data. There is no gross abnormalities noted with labs. Preoperative indications, planned procedure, benefits, risk, anticipated healing time and management were reviewed. The patient understands and elects proceed with surgery at this time. No guarantees were made. The patient understands risk and complications include but are not limited to following: pain, swelling, scarring, need for further surgery, tendon contracture, transfer lesion, recurrence, arthritis, need for further surgery, delayed or nonhealing, infection, blood clot, allergic reaction, loss of limb, function, or life. The informed surgical limb and consent were signed. I answered all the patient's questions. Procedure in detail: The patient was transported to the operating room via cart and placed on the operating room table in the supine position. Final verification of the patient, surgery, limb designation was performed via the timeout procedure. Local anesthetic was administered by the podiatry team and MAC anesthesia was initiated by the anesthesia team. A well-padded pneumatic left ankle tourniquet was placed. The left lower extremity was prepped and draped in the usual aseptic manner. An Esmarch bandage was used to exsanguinate the limb and the tourniquet was inflated at this time. Surgery began the following manner: Attention was directed to the plantar aspect of the left foot and a curvilinear incision was made at the toe sulcus level in a curvilinear manner taking care to remain between the second and third metatarsal heads to avoid future scar formation over the prominent tarsal head location. This was made through the skin and blunt dissection was carefully performed down to the soft tissue mass. Care was taken to identify, protect, and retract all neurovascular structures at this point and throughout the remainder of surgery. Upon incision there was immediate white creamy textured drainage that appeared to be only superficial. This was sent to pathology. The soft tissue mass was well encapsulated and white shiny material and this was carefully dissected from the adjacent dermal layers of the skin and other soft tissue. This measured approximately 1.2 x 2.5 cm in width and length respectively. It was oval-shaped and had a thickness of approximately 1 cm. There appeared to be a stalk that came from the proximal aspect. This mass is very superficial did not invade deeper structures. This was excised in total and was sent to both pathology and microbiology. There was a tag placed on the distal aspect. There was an apparent stalk coming from proximal and this was tied with Vicryl, cauterized, and buried into the adjacent muscle tissue. There was no evidence of purulence, necrosis, or adjacent tissue invasion. Next, copious saline irrigation was performed with normal saline. Post irrigation cultures were obtained as noted. The tourniquet was deflated at this time and brisk capillary refill time was noted to all margins of the skin in all digits of the left foot. Minimal electrocauterization and direct pressure was needed to maintain hemostasis. There was no pulsatile bleeding. The skin was remodeled by performing an ellipse excision of the prior ulcerated draining sites. The skin was reapproximated in a nontensile manner with minimal deep suture application. The skin was next reapproximated utilizing 2-0 nylon utilizing horizontal mattress technique to gently ramila the skin edges. The postoperative dressing was applied including Betadine soaked Adaptic, gauze, Kerlix, abdominal pad and Wayne wrap. After procedure: The patient tolerated the procedure and anesthesia well. The patient was transported to the PACU with vital signs stable and vascular status intact to the surgical limb. To ice and elevate for pain and inflammation management. I will follow her microbiology and pathology results closely. To maintain a strict nonweightbearing status of the left foot with use of the walker. To keep your dressing clean, dry, and intact until follow-up with the [facility] next week. She is provided with a postoperative pain medication prescription and was advised on safe and proper use. She can take this only if needed for pain. Postoperative orders were entered electronically. She will be discharged home this afternoon. Grafts/Implants Used: none Complications none Admit VTE Documentation VTE Present on Admission: No VTE Mechan Device Prophylaxis: SCD's VTE Pharm Prophylaxis ordered?: No Reason prophylaxis not ordered:: Procedure Not Indicated
[2021-12-21 14:15] VITALS: BP 112/70; BP 95/70; PULSE 77; RESP 16; TEMP 36.6; O2SAT 92
[2021-12-21] MEDS: Lidocaine 1% (20 ml mdv) 20 ML Vial (14:16)
[2021-12-21] MEDS: Bupivacaine 0.25% 30 ML Vial (14:18)
[2021-12-21 14:20] VITALS: BP 112/70; BP 93/76; PULSE 72; RESP 16; O2SAT 92
[2021-12-21 14:25] VITALS: BP 112/70; BP 97/67; PULSE 73; RESP 16; O2SAT 93
[2021-12-21 14:34] VITALS: BP 108/74; BP 112/70; PULSE 72; RESP 16; TEMP 36.5; O2SAT 98
[2021-12-21 15:00] VITALS: BP 112/70; BP 115/96; PULSE 78; RESP 16; TEMP 36.2; O2SAT 93
== END 2021-12-21 15:12 | disposition home or self-care (01) ==
LOC: SDC 11:24 → AC 11:25
PROVIDERS: PCP Family Medicine; Visit Provider Podiatrist
PROC: (CPT 28039; principal; 2021-12-21 12:45)
DX: L72.0 Epidermal cyst (principal); E11.40 Type 2 diabetes mellitus with diabetic neuropathy, unspecified; F17.210 Nicotine dependence, cigarettes, uncomplicated; E66.9 Obesity, unspecified; Z68.25 Body mass index [BMI] 25.0-25.9, adult; Z79.84 Long term (current) use of oral hypoglycemic drugs
CPT/HCPCS: 28039; 00400; 82962; 87015; 87070; 87075; 87077; 87102; 87116; 87186; 87205; 87206; 88305; 88341; 88342; J7120; J2405

== ENCOUNTER → 2022-03-06 | Outpatient (CLI) | payer MEDICAID, SELFPAY ==
[2022-03-06 17:48] LABS: Absolute Lymphocyte Count 4.41 X10^3/uL (0.83-4.51); Basophil# 0.03 X10^3/uL; Basophil% 0.3 % (0-1); Eosinophil# 0.26 X10^3/uL; Eosinophils% 2.3 % (0-5); Hematocrit 47.7 % (37-47); Hemoglobin 16.3 g/dL (12.0-15.0); Lymphocyte # 4.41 X10^3/ul (0.83-4.51); Lymphocyte % 39.2 % (19-41); Mean Corp Hgb Conc 34.2 g/dL (32-36); Mean Corpuscular Volume 93.7 fL (81-99); Monocyte# 0.52 X10^3/uL; Monocyte% 4.6 % (0-10); NRBC Flagged by Analyzer 0 % (0-5); Neutrophil % 53.3 % (47-70); Platelet Count 419 K/mm3 (150-450); RBC Distribution Width CV 12.4 % (11.6-14.6); Red Blood Count 5.09 M/mm3 (4.2-5.4); White Blood Count 11.3 K/mm3 (4.4-11.0)
[2022-03-06 18:27] LABS: ALB/GLOB Ratio 1.2 RATIO (0.9-2.4); AST(SGOT) 10 U/L (15-37); Alanine Aminotransfer ALT/SGPT 20 U/L (13-56); Albumin, Serum 3.9 g/dL (3.2-5.0); Alkaline Phosphatase 107 U/L (45-117); Anion Gap 7 (5-15); BUN 12 mg/dL (7-18); BUN/Creat Ratio 14.2 RATIO (10-20); Chloride 106 mmol/L (98-107); Cholesterol 189 mg/dL (200); Creatinine, Serum 0.84 mg/dL (0.55-1.02); EST Glomerular Filtration Rate 72 mL/min (>60); Est Glom Filt Rate - Afr Amer 88 mL/min (>60); Globulin 3.3 g/dL (2.2-4.2); Glucose 258 mg/dL (74-106); High Density Lipoprotein 45 mg/dL; Potassium 4.2 mmol/L (3.5-5.1); Protein, Total 7.2 g/dL (6.4-8.2); Sodium Level 136 mmol/L (136-145); Thyroid Stim Hormone (TSH) 1.87 uIU/mL (0.358-3.74); Triglycerides 165 mg/dL; Very Low Density Lipoprotein 33 mg/dL (5-40)
== END | disposition home or self-care (01) ==
LOC: MFPLAB 15:58
PROVIDERS: PCP Family Medicine; Referring Provider Family Medicine; Visit Provider Family Medicine
DX: E11.65 Type 2 diabetes mellitus with hyperglycemia (principal)
CPT/HCPCS: 36415; 80053; 80061; 84443; 85025